=== PATIENT | male | born 1945 | race Caucasian/White ===

== ENCOUNTER → 2021-01-16 | Outpatient (CLI) | payer MEDICARE, OTHER ==
[~2021-01-16] MED LIST: CENTRUM SILVER1 EAC1 PO; ELIQUIS 2.5 MG2.5 MG PO; EYE MULTIVITAM1 EACH PO; VITAMIN B-121000 MCG PO; VITAMIN D350 MC3 PO
[2021-01-16 12:29] LABS: HEMOGLOBIN 15.2 gm/dl (14.0-17.5); RED BLOOD COUNT 4.91 M/UL (4.20-5.50); WHITE BLOOD COUNT 8.7 K/UL (4.5-11.0)
== END ==
LOC: OPSV2 01-10 10:30 → EDSTATUS 11:30 → OPSV2 11:30
PROVIDERS: Orthopaedic Surgery
DX: Z01.818 Encounter for other preprocedural examination (principal); M17.11 Unilateral primary osteoarthritis, right knee; R91.8 Other nonspecific abnormal finding of lung field
CPT/HCPCS: 36415; 71046; 80048; 81001; 85025; 87081; 87086; 93005

== ENCOUNTER → 2021-01-22 | Outpatient (CLI) | payer MEDICARE, OTHER ==
[2021-01-22 12:51] LABS: BUN/CREATININE RATIO 13 (0-10)
== END ==
LOC: LAB 11:34
PROVIDERS: Orthopaedic Surgery
DX: Z01.818 Encounter for other preprocedural examination (principal)
CPT/HCPCS: 36415; 80048; 86850; 86900; 86901

== ENCOUNTER 2021-01-23 06:06 | Day surgery (SDC) | payer MEDICARE, OTHER ==
[~2021-01-23] VITALS: Ht 182.9 cm; Wt 101.6 kg
[2021-01-23] MEDS ORDERED: CENTRUM SILVER1 EAC1 PO (06:52)
[2021-01-23] MEDS ORDERED: VITAMIN D350 MC3 PO (06:53)
[2021-01-23] MEDS ORDERED: VITAMIN B-121000 MCG PO (06:53)
[2021-01-23] MEDS ORDERED: EYE MULTIVITAM1 EACH PO (06:54)
[2021-01-24 03:42] LABS: HEMOGLOBIN 12.3 gm/dl (14.0-17.5); RED BLOOD COUNT 4.07 M/UL (4.20-5.50); WHITE BLOOD COUNT 13.5 K/UL (4.5-11.0)
[2021-01-24] MEDS ORDERED: ELIQUIS 2.5 MG2.5 MG PO (09:43)
--- NOTE | 2021-01-24 14:20 | NUR ---
CALLED DR OSBORNE OFFICE AND HER ESCRIBED PAIN MED TO JOSE IN [place] NOTED AND CALLED REPORT TO [facility] AT 1425 RM WAS THE NURSE REPORTED TO
== END 2021-01-24 14:21 | disposition home or self-care (01) ==
LOC: OR 06:06 → EDSTATUS 07:45 → M/S 11:49 → OR 01-24 14:21
PROVIDERS: Orthopaedic Surgery
DX: M17.11 Unilateral primary osteoarthritis, right knee (principal); G89.29 Other chronic pain; E11.9 Type 2 diabetes mellitus without complications; K27.9 Peptic ulcer, site unspecified, unspecified as acute or chronic, without hemorrhage or perforation; Z88.0 Allergy status to penicillin; Z79.899 Other long term (current) drug therapy
CPT/HCPCS: 36415; 73560; 80048; 85025; 97110-GP-CQ; 97116-GP-CQ; 97161; 97166; 97535; C1776; J0171; J0690; J0735; J1100; J1170; J1885; J2001; J2274; J2370; J2405; J2704; J2795; J3010; J3370; J7120

== ENCOUNTER 2021-01-25 15:47 | Emergency (ER) | payer MEDICARE, OTHER ==
[2021-01-25 17:46] LABS: HEMOGLOBIN 11.6 gm/dl (14.0-17.5); RED BLOOD COUNT 3.84 M/UL (4.20-5.50); WHITE BLOOD COUNT 12.3 K/UL (4.5-11.0)
[2021-01-25 18:06] LABS: BUN/CREATININE RATIO 19 (0-10)
== END 2021-01-25 20:18 | disposition home or self-care (01) ==
LOC: ER1 15:47
PROVIDERS: Emergency Medicine
DX: M79.89 Other specified soft tissue disorders (principal); T50.905A Adverse effect of unspecified drugs, medicaments and biological substances, initial encounter; Z20.822 Contact with and (suspected) exposure to COVID-19; Z88.0 Allergy status to penicillin
CPT/HCPCS: 36600; 70450; 71045; 80053; 81001; 82550; 82553; 82803; 83605; 83690; 83735; 83874; 83880; 84100; 84439; 84443; 84484; 85025; 85730; 87040; 93005; 93971; 99285; U0002

== ENCOUNTER → 2021-12-15 | Outpatient (CLI) | payer MEDICARE | LOC: KOH-I 15:29 | DX: R09.02 Hypoxemia (principal); R91.8 Other nonspecific abnormal finding of lung field | CPT/HCPCS: 71046 ==

== ENCOUNTER 2021-12-31 13:50 | Inpatient (IN) | payer MEDICARE, MEDICAID ==
[~2021-12-31] VITALS: Ht 182.9 cm; Wt 99.8 kg
[2021-12-31 15:39] LABS: HEMOGLOBIN 13.6 gm/dl (14.0-17.5); RED BLOOD COUNT 4.53 M/UL (4.20-5.50); WHITE BLOOD COUNT 9.4 K/UL (4.5-11.0)
[2022-01-01 02:52] LABS: HEMOGLOBIN 12.1 gm/dl (14.0-17.5); WHITE BLOOD COUNT 9.6 K/UL (4.5-11.0)
[2022-01-01 02:58] LABS: RED BLOOD COUNT 4.06 M/UL (4.20-5.50)
[2022-01-01 03:04] LABS: BUN/CREATININE RATIO 14 (0-10)
[2022-01-01] MEDS ORDERED: VITAMIN D325 MCG PO (10:30)
[2022-01-02 07:29] LABS: RED BLOOD COUNT 3.86 M/UL (4.20-5.50); WHITE BLOOD COUNT 9.5 K/UL (4.5-11.0)
[2022-01-02 08:06] LABS: BUN/CREATININE RATIO 17 (0-10)
[2022-01-03 12:16] LABS: ORGANISM ID Not indicated. (.); SPECIMEN SOURCE Urine (.); STREPTOCOCCUS PNEUMONIAE AG Negative (Negative)
[2022-01-03] MEDS ORDERED: PROAIR DIGIHAL90 MCG INH (17:44)
[2022-01-04] MEDS ORDERED: BACTRIM DS TAB1 EACH PO (10:24)
[2022-01-04] MEDS ORDERED: ZYVOX600 MG PO (10:24)
[2022-01-04] MEDS ORDERED: ELIQUIS5 M1 PO (10:28)
[2022-01-04] MEDS ORDERED: PROAIR DIGIHAL90 MCG INH (13:18)
[2022-01-04] MEDS ORDERED: MAXI-TUSS AC L473 ML PO (13:45)
--- NOTE | 2022-01-04 15:25 | NUR ---
PTS OXYGEN SATURATION IS 85% ON ROOM AIR AT REST
== END 2022-01-04 19:00 | disposition home or self-care (01) | DRG 177 ==
LOC: ER1 13:50 → M/S 18:23 → CDU 18:23 → M/S 01-01 13:45
PROVIDERS: Physician Assistant Medical; ADMIT Internal Medicine
PROC: 8E0ZXY6 Isolation (ICD-10-PCS; principal; 2021-12-31)
PROC: 3E0333Z Introduction of Anti-inflammatory into Peripheral Vein, Percutaneous Approach (ICD-10-PCS; 2021-12-31)
PROC: XW033E5 Introduction of Remdesivir Anti-infective into Peripheral Vein, Percutaneous Approach, New Technology Group 5 (ICD-10-PCS; 2021-12-31)
DX: U07.1 COVID-19 (principal); J12.82 Pneumonia due to coronavirus disease 2019; J96.01 Acute respiratory failure with hypoxia; I26.99 Other pulmonary embolism without acute cor pulmonale; J15.6 Pneumonia due to other Gram-negative bacteria; I82.412 Acute embolism and thrombosis of left femoral vein; I82.432 Acute embolism and thrombosis of left popliteal vein; I82.442 Acute embolism and thrombosis of left tibial vein; N17.9 Acute kidney failure, unspecified; N30.00 Acute cystitis without hematuria; R73.9 Hyperglycemia, unspecified; B95.2 Enterococcus as the cause of diseases classified elsewhere; Z96.651 Presence of right artificial knee joint; Z88.0 Allergy status to penicillin; Z79.899 Other long term (current) drug therapy; Z79.01 Long term (current) use of anticoagulants
CPT/HCPCS: 36415; 36600; 71045; 80048; 80053; 81001; 82550; 82553; 82803; 83036; 83540; 83550; 83605; 83735; 83874; 83880; 84100; 84484; 85025; 85027; 85379; 85610; 85730; 86140; 87040; 87070; 87077; 87086; 87186; 87205; 87278; 87899; 93005; 93971; 94640; 94664; 94760; 97110; 97116; 97161; 99284; J0248; J1100; J1644; J1940; J7030; Q9967; U0002

== ENCOUNTER → 2022-01-12 | Outpatient (CLI) | payer MEDICARE ==
[~2022-01-12] MED LIST changes: +BACTRIM DS TAB1 EACH PO; +ELIQUIS5 M1 PO; +MAXI-TUSS AC L473 ML PO; +PROAIR DIGIHAL90 MCG INH; +VITAMIN D325 MCG PO; +ZYVOX600 MG PO
== END ==
LOC: KOH-I 13:25
DX: J18.9 Pneumonia, unspecified organism (principal)
CPT/HCPCS: 71046

== ENCOUNTER → 2022-03-20 | Outpatient (CLI) | payer MEDICARE | LOC: HEART 5 11:00 | DX: J18.9 Pneumonia, unspecified organism (principal); U09.9 Post COVID-19 condition, unspecified; R05.9 Cough, unspecified | CPT/HCPCS: 71046; 94060; 94729; 95012 ==